=== PATIENT | female | born 1990 | race Caucasian/White ===

== ENCOUNTER 2017-05-25 22:15 | Emergency (ER) | payer MEDICAID, MEDICARE ==
[~2017-05-25] VITALS: Ht 157.5 cm; Wt 78.0 kg
[~2017-05-25 22:15] MED LIST: FOLI-43 PO; [UNRECOGNIZED DRUG - CODE] PO
[2017-05-26] MEDS ORDERED: ONDANSETRON 4MG ODT PO ONE (01:00)
[2017-05-26] MEDS ORDERED: HYDROCODONE/ACETAMINOPHEN 5/325MG TABLET PO NR (01:30)
[2017-05-26 01:45] VITALS: BP 128/81
[2017-05-26 01:54] LABS: CLARITY URINE CLOUDY (CLEAR); COLOR URINE YELLOW (YELLOW); GLUCOSE URINE NEGATIVE (NEGATIVE); KETONES URINE TRACE (NEGATIVE); LEUKOCYTE ESTERASE URINE NEGATIVE (NEGATIVE); NITRITE URINE NEGATIVE (NEGATIVE); OCCULT BLOOD URINE 2+ (NEGATIVE); PH URINE 5.5 (4.5-8.0); PROTEIN URINE NEGATIVE (NEGATIVE); SPECIFIC GRAVITY URINE 1.031 (1.005-1.030); UROBILINOGEN URINE 0.2 E.U./dL (0.2-1.0)
== END 2017-05-26 02:10 | disposition home or self-care (01) ==
LOC: ER 22:15
DX: M25.511 Pain in right shoulder (principal); M54.2 Cervicalgia
CPT/HCPCS: 81001; 81025; 99283; Q0162

== ENCOUNTER 2017-05-26 09:45 | Emergency (ER) | payer MEDICAID, MEDICARE ==
[~2017-05-26] VITALS: Ht 157.5 cm; Wt 78.0 kg
[2017-05-26 10:02] VITALS: BP 131/86
== END 2017-05-26 11:16 | disposition home or self-care (01) ==
LOC: ER 09:45
DX: Z76.0 Encounter for issue of repeat prescription (principal); Z88.6 Allergy status to analgesic agent
CPT/HCPCS: 99283

== ENCOUNTER 2017-07-21 09:33 | Emergency (ER) | payer MEDICARE ==
[~2017-07-21] VITALS: Ht 157.5 cm; Wt 73.0 kg
[2017-07-21 12:17] LABS: BASOPHILS % 0.2 % (0.0-2.0); EOSINOPHILS % 0.1 % (0.0-5.0); HEMATOCRIT. 35.9 % (36.0-48.0); HEMOGLOBIN. 11.9 g/dL (12.0-16.0); LYMPHOCYTES % 11.6 % (20.0-50.0); MEAN CORPUSCULAR HEMOGLOBIN 27.7 pg (28.0-32.0); MEAN CORPUSCULAR VOLUME 83.7 fL (81.0-99.0); MONOCYTES % 3.3 % (2.0-8.0); NEUTROPHILS % 84.8 % (40.0-76.0); PLATELET 321 x1000/uL (130-400); RED BLOOD CELL COUNT 4.29 mill/uL (4.2-5.4); RED CELL DISTRIBUTION WIDTH 13.3 % (11.6-14.6)
[2017-07-21 12:18] LABS: CLARITY URINE CLOUDY (CLEAR); COLOR URINE YELLOW (YELLOW); GLUCOSE URINE NEGATIVE (NEGATIVE); KETONES URINE NEGATIVE (NEGATIVE); LEUKOCYTE ESTERASE URINE 2+ (NEGATIVE); NITRITE URINE NEGATIVE (NEGATIVE); OCCULT BLOOD URINE NEGATIVE (NEGATIVE); PROTEIN URINE NEGATIVE (NEGATIVE); SPECIFIC GRAVITY URINE 1.027 (1.005-1.030)
[2017-07-21 12:23] LABS: PROTHROMBIN TIME 10.2 sec (9.4-11.6)
[2017-07-21 12:25] LABS: CARBON DIOXIDE 26 mEq/L (21-32); CHLORIDE 106 mEq/L (98-107)
[2017-07-21] MEDS ORDERED: SODIUM CHLORIDE 0.9% 1,000 ML IV ONE ×2 (12:38→14:49)
[2017-07-21] MEDS ORDERED: ONDANSETRON HCL 4MG/2ML VIAL IV STA (12:38)
[2017-07-21] MEDS ORDERED: MORPHINE SULFATE 4 MG/ML CPJ (NOT FOR IM USE) IV STA ×2 (12:38→14:43)
[2017-07-21 12:46] LABS: *AMPHETAMINES SCREEN URINE NEGATIVE (NEGATIVE); *BARBITURATES SCREEN URINE NEGATIVE (NEGATIVE); *BENZODIAZEPINES SCREEN URINE NEGATIVE (NEGATIVE); *COCAINE SCREEN URINE NEGATIVE (NEGATIVE); CANNABINOID URINE SCREEN PRESUMTIVE POSITIVE (NEGATIVE); METHADONE URINE SCREEN NEGATIVE (NEGATIVE); OPIATES URINE SCREEN NEGATIVE (NEGATIVE); PHENCYCLIDINE URINE SCREEN NEGATIVE (NEGATIVE)
[2017-07-21] MEDS ORDERED: CEFTRIAXONE 1 G PREMIX 50 ML IV ONE (15:00)
[2017-07-21 15:39] VITALS: BP 124/82
[2017-07-22] MEDS ORDERED: CIPR-168 PO (14:23)
== END 2017-07-21 16:03 | disposition home or self-care (01) ==
LOC: ER 12:01
DX: N39.0 Urinary tract infection, site not specified (principal); R10.2 Pelvic and perineal pain; Z88.6 Allergy status to analgesic agent; Z88.8 Allergy status to other drugs, medicaments and biological substances
CPT/HCPCS: 36415; 76830; 76856; 80053; 80305; 81001; 81025; 85025; 85610; 96361; 96365; 96375; 96376; 99285; J0696; J2270; J2405; J7030; Z7610

== ENCOUNTER 2017-07-22 14:01 | Emergency (ER) | payer MEDICARE ==
[~2017-07-22] VITALS: Ht 157.5 cm; Wt 73.0 kg
[2017-07-22] MEDS ORDERED: CIPR-168 PO (14:23)
[2017-07-22] MEDS ORDERED: SODIUM CHLORIDE 0.9% 1,000 ML IV ONE (17:52)
[2017-07-22] MEDS ORDERED: MORPHINE SULFATE 4 MG/ML CPJ (NOT FOR IM USE) IV STA (17:52)
[2017-07-22] MEDS ORDERED: ONDANSETRON HCL 4MG/2ML VIAL IV STA (17:52)
[2017-07-22 18:19] LABS: CLARITY URINE CLOUDY (CLEAR); COLOR URINE YELLOW (YELLOW); GLUCOSE URINE NEGATIVE (NEGATIVE); KETONES URINE 2+ (NEGATIVE); LEUKOCYTE ESTERASE URINE 1+ (NEGATIVE); NITRITE URINE NEGATIVE (NEGATIVE); OCCULT BLOOD URINE NEGATIVE (NEGATIVE); PROTEIN URINE NEGATIVE (NEGATIVE); SPECIFIC GRAVITY URINE 1.025 (1.005-1.030)
[2017-07-22 18:19] LABS: BASOPHILS % 0.5 % (0.0-2.0); EOSINOPHILS % 0.9 % (0.0-5.0); HEMATOCRIT. 35.7 % (36.0-48.0); HEMOGLOBIN. 11.8 g/dL (12.0-16.0); LYMPHOCYTES % 41.9 % (20.0-50.0); MEAN CORPUSCULAR HEMOGLOBIN 28.1 pg (28.0-32.0); MEAN CORPUSCULAR VOLUME 85.3 fL (81.0-99.0); MEAN PLATELET VOLUME 8.4 fl (7.4-10.4); MONOCYTES % 6.4 % (2.0-8.0); NEUTROPHILS % 50.3 % (40.0-76.0); PLATELET 312 x1000/uL (130-400); RED BLOOD CELL COUNT 4.18 mill/uL (4.2-5.4); RED CELL DISTRIBUTION WIDTH 13.1 % (11.6-14.6)
[2017-07-22 18:24] LABS: PROTHROMBIN TIME 10.3 sec (9.4-11.6)
[2017-07-22 18:26] LABS: CHLORIDE 107 mEq/L (98-107)
[2017-07-22 18:31] LABS: CARBON DIOXIDE 23 mEq/L (21-32)
[2017-07-22 18:37] LABS: TROPONIN I < 0.02 ng/mL (0.00-0.04)
[2017-07-22 18:39] LABS: HCG SCREEN NEGATIVE
[2017-07-22] MEDS ORDERED: METOCLOPRAMIDE HCL 10MG/2ML VIAL IV ONE (19:15)
[2017-07-22 21:18] VITALS: BP 116/68
== END 2017-07-22 21:18 | disposition home or self-care (01) ==
LOC: ER 14:01 → CANRESERV 20:49 → ENRESERV 20:49 → CANBEDREQ 21:08 → ER 21:18
DX: N83.202 Unspecified ovarian cyst, left side (principal); N39.0 Urinary tract infection, site not specified; Z88.6 Allergy status to analgesic agent
CPT/HCPCS: 36415; 74176; 80053; 81001; 83605; 83690; 84484; 84703; 85025; 85610; 87040; 87086; 96361; 96374; 96375; 99285; J2270; J2405; J2765; J7030

== ENCOUNTER 2017-07-26 16:54 | Emergency (ER) | payer MEDICARE ==
[~2017-07-26] VITALS: Ht 157.5 cm; Wt 73.0 kg
[~2017-07-26 16:54] MED LIST changes: +CIPR-168 PO
[2017-07-26 23:00] VITALS: BP 121/69
== END 2017-07-26 23:00 | disposition home or self-care (01) ==
LOC: ER 21:51
DX: S16.1XXA Strain of muscle, fascia and tendon at neck level, initial encounter (principal); Z88.6 Allergy status to analgesic agent; Z98.890 Other specified postprocedural states; V43.62XA Car passenger injured in collision with other type car in traffic accident, initial encounter; Y93.89 Activity, other specified; Y92.488 Other paved roadways as the place of occurrence of the external cause
CPT/HCPCS: 81025; 99283; Z7610